=== PATIENT | female | born 1985 | race Caucasian/White ===

== ENCOUNTER 2017-02-14 10:31 | Emergency (ER) | payer MEDICAID ==
[~2017-02-14] VITALS: Ht 154.9 cm; Wt 68.0 kg
[~2017-02-14 10:31] MED LIST: FOLI0.4T40 PO; ONDA4TAB PO
[2017-02-14 10:34] VITALS: BP 115/59
--- NOTE | 2017-02-14 10:42 | NUR ---
PT [id number] WITH STEADY GAIT AT THIS TIME; RR EVEN/UNLABORED; ER MD DR. MESA NOTIFIED; PT TO LOBBY AWAITING OPEN BED.
[2017-02-14 14:18] LABS: BASOPHILS # (AUTO) 0.2 K/uL (0.00-0.22); BASOPHILS % (AUTO) 2.1 % (0.0-2.0); EOSINOPHILS # (AUTO) 0.1 K/uL (0-0.4); EOSINOPHILS % (AUTO) 1.1 % (0.0-4.0); HEMATOCRIT 36.4 % (36-48); HEMOGLOBIN 12.3 g/dL (12.0-16.0); LYMPHOCYTES # (AUTO) 2.6 K/uL (2.5-16.5); LYMPHOCYTES % (AUTO) 23.7 % (20.5-51.1); MEAN CORPUSCULAR HEMOGLOBIN 30 pg (27-31); MEAN CORPUSCULAR HGB CONC 34 g/dL (33-37); MEAN CORPUSCULAR VOLUME 87 fL (80-94); MONOCYTES # (AUTO) 0.5 K/uL (0.8-1.0); MONOCYTES % (AUTO) 4.1 % (1.7-9.3); NEUTROPHILS # (AUTO) 7.6 K/uL (1.8-7.7); PLATELET COUNT (AUTO) 368 K/uL (140-450); RED BLOOD CELL COUNT(AUTO) 4.17 MIL/uL (4.20-5.40); RED CELL DISTRIBUTION WIDTH 11.9 % (11.6-13.7)
[2017-02-14] MEDS ORDERED: ACETAMINOPHEN EXTRA STRENGTH 500 MG TAB PO ONE (15:55)
--- NOTE | 2017-02-14 15:56 | NUR ---
ER MD DR. MESA WITH PT IN TRIAGE AND RN.
[2017-02-14 17:50] LABS: APPEARANCE,URINE CLEAR (CLEAR); BILIRUBIN,URINE NEGATIVE (NEGATIVE); BLOOD, URINE TRACE-I (NEGATIVE); COLOR,URINE YELLOW (YELLOW); LEUKOCYTE ESTERASE ,URINE NEGATIVE (NEGATIVE); NITRITE, URINE NEGATIVE (NEGATIVE); UGLUCOSE NEGATIVE (NEGATIVE)
--- NOTE | 2017-02-14 17:55 | NUR ---
PT CAME IN WITH LOWER LEFT ABDOMINAL PAIN. CURRENTLY AWAKE, ALERT, AND IN CHAIR. PAIN NOT SUBSIDING BUT TOLERABLE. CONTINUE TO MONITOR.
[2017-02-14 18:00] LABS: RBC,URINE 0-5 (RARE) /HPF (0-5)
[2017-02-14 18:01] LABS: WBC,URINE 0-5 (RARE) /HPF (0-5)
[2017-02-14 18:22] VITALS: BP 105/65
--- NOTE | 2017-02-14 18:23 | NUR ---
Patient discharged with v/s stable. Pain reduced to 3/10 from 6/10. Written and verbal after care instructions given and explained. Patient verbalized understanding. Ambulatory with steady gait. All questions addressed prior to discharge. Advised to follow up with PMD. Pt states she has appointment with her OBGYN.
== END 2017-02-14 18:23 | disposition home or self-care (01) ==
LOC: MED 10:31
DX: O20.0 Threatened abortion (principal); Z3A.01 Less than 8 weeks gestation of pregnancy; Z88.0 Allergy status to penicillin
CPT/HCPCS: 36415; 76817; 81001; 81025; 84702; 85025; 86900; 86901; 99285; Q0092